=== PATIENT | female | born 1945 | race Caucasian/White ===

== ENCOUNTER 2016-11-21 17:16 | Emergency (ER) | payer MEDICARE, BC ==
--- NOTE | 2016-11-21 17:25 | Emergency Department Record ---
History of Present Illness - General Stated Complaint: JUMA/CHEST PAIN Time Seen by Provider: 11/21/16 17:18 Source: Patient Mode of Arrival: Ambulatory Limitations: No limitations - History of Present Illness Initial Comments: 71 yo female presents after a collapse on the medical floor. She was a visitor with family in the hospital. Witnesses state the patient was on the floor most of the day with out problems. She abruptly had trouble breathing and developed distress. This went on for a few minutes then started shaking/seizing. [employer]PER[employer]OR called and patient emergently brought to the ER. No initial history known on patient. No family in ED. No records on EMR. MD Complaint: Collapsed during rest -: Minute(s) Place: Home Bystander CPR Performed: No Initial Findings in the Field: Agonal Associated Symptoms: Shortness of breath - [place] Coma Scale Eye Response: (4) Open spontaneously Motor Response: (6) Obeys commands Verbal Response: (5) Oriented [place] Total: 15 Review of Systems ROS unobtainable: Due to endotracheal tube Physical Exam - General General Appearance: Severe distress, Other (Agonal respiration) Limitations: Altered mental status - Head Head exam: Normocephalic, Normal inspection - Eye Eye exam: Normal appearance. negative: Conjunctival injection, Periorbital swelling - ENT ENT exam: Normal exam, Mucous membranes moist Ear exam: Normal external inspection Nasal Exam: Normal inspection Mouth exam: Normal external inspection - Neck Neck exam: Normal inspection - Respiratory Respiratory exam: Accessory muscle use, Respiratory distress - Cardiovascular Cardiovascular Exam: Regular rate, Normal rhythm, Normal heart sounds - GI/Abdominal GI/Abdominal exam: Soft. negative: Tenderness - Rectal Rectal exam: Deferred - exam: Deferred - Extremities Extremities exam: Normal inspection, Full ROM, Normal capillary refill. negative: Tenderness - Back Back exam: Reports: Normal inspection - Neurological Neurological exam: Altered - Psychiatric Psychiatric exam: Agitated, Anxious - Skin Skin exam: Diaphoretic Course - Reevaluation(s) Reevaluation #1: initial EKG 17:22 NSR rate 72, intervals normal, axis normal, ST no acute changes 11/21/16 17:27 The patient was brought into the resuscitation room with alert but moaning mental status stating cant breath The breathing became agonal. The patient was emergently intubated with straight blade 7.5mm ETT Bilateral breath sounds with positive ETCO2. 11/21/16 17:28 Given initial EKG without acute ST elevation and extreme JUMA and hypoxia with witness seizure HCT and stat CTA chest ordered for PE. BP, HR, Oxygen saturations stable after intubation. During the initial resuscitation the patient had brief bradycardia with less than 15 seconds of chest compressions. 11/21/16 17:33 No acute changes on the CBC or CMP the portable chest was reviewed the tube is about 2 above the christina. no PTX the patient will be taken to CT repeat EKG ordered 11/21/16 17:49 Repeat EKG unchanged. No acute ST elevation RN on the floor called daughter in [place]. She is unaware of the patients medical history. The patient is visiting her father who is 105. He is unable provide history. Her daughter reports the patient told her she had a 1 hour hot spell with shortness of breath one week and and saw her doctor. Her doctor is unknown. 11/21/16 18:[address] was negative for acute process CT chest is negative for acute process no PE 11/21/16 18:43 11/21/16 18:44 Ph 7.15 PCO2 63 Po2 345 11/21/16 18:45 11/21/16 18:49 [facility] is closed to all one call transfers including [place] [facility] [place]. 11/21/16 19:04 I VIKI Smyth [place] [facility] [place] [facility] [place]. Medical Decision Making - Lab Data Result diagrams: 11/21/16 17:18 11/21/16 17:27 Disposition Disposition: Transfer Clinical Impression: Acute respiratory failure Qualifiers: Respiratory failure complication: unspecified whether with hypoxia or hypercapnia Qualified Code(s): J96.00 - Acute respiratory failure, unspecified whether with hypoxia or hypercapnia Disposition: Acute Care Hospital Transfer [place] [facility] [place] For Transfer: Acute respiratory arrest Accepting Physician: Haja Time Discussed w/Accepting Physician: 19:06 Condition: (5) Critical Forms: Patient Portal Access Time of Disposition: 19:06 Quality - Quality Measures Quality Measures: N/A - Blood Pressure Screening Does Patient Have Any of the Following: No Blood Pressure Classification: Normal BP Reading Systolic Measurement: 78 Diastolic Measurement: 67 Screening for High Blood Pressure: < Normal BP, F/U Not Required > [G8783] Pre-Hypertensive Follow-up Interventions: Referral to alternative/primary care provider.
[2016-11-21 17:26] LABS: HEMATOCRIT 46.4 % (35.0-47.0); HEMOGLOBIN 15.7 gm/dl (11.6-16.0); MEAN CELL VOLUME 90.8 fl (81-97); MEAN CORPUSCULAR HEMOGLOBIN 30.7 pg (27-33); MEAN CORPUSCULAR HGB CONC 33.8 g/dl (32-36); MEAN PLATELET VOLUME 8.6 fl (7.4-10.4); PLATELET COUNT 422 K/uL (130-400); RED BLOOD COUNT 5.11 M/uL (3.80-5.40); RED CELL DISTRIBUTION WIDTH 12.1 % (11.5-14.5); WHITE BLOOD COUNT W/O DIFF 6.4 K/uL (4.2-12.2)
[2016-11-21 17:36] LABS: ALB/GLOB RATIO 1.3 (1.1-1.8); ALBUMIN 4.3 g/dL (4.0-5.0); ALKALINE PHOSPHATASE 217 U/L (35-104); ALT/SGPT 40 U/L (<33); AST/SGOT 34 U/L (10.0-35.0); BLOOD UREA NITROGEN 13 mg/dL (8-23); CREATININE 0.5 mg/dL (0.5-0.9); EST GLOMERULAR FILTRATION RATE > 60 mL/min; GLUCOSE,RANDOM 107 mg/dL (74-109); TOTAL PROTEIN 7.6 g/dL (6.6-8.7)
[2016-11-21 17:37] LABS: INR 0.93; PARTIAL THROMBOPLASTIN TIME 23.6 SECONDS (24.5-39.1)
[2016-11-21] MEDS ORDERED: FENTANYL PF 100MCG/2ML VIAL IVP ONE ×2 (17:38→17:42)
[2016-11-21 17:42] LABS: ARTERIAL BLD GAS O2 SATURATION 99.4 % (95-98); ARTERIAL BLOOD GAS BASE EXCESS -7.6 mmol/L (-2 - 3); ARTERIAL BLOOD GAS HCO3 22.7 mmol/L (18-23); CARBOXYHEMOGLOBIN 0.6 % (0-1.5); METHEMOGLOBIN 0.2 % (0.0-1.5); O2 HEMOGLOBIN 98.6 % vol (94-99); TOTAL HEMOGLOBIN 14.3 g/dl (11.6-16)
[2016-11-21] MEDS ORDERED: 0.9 % SODIUM CHLORIDE 1,000 ML BAG IV ONE (17:42)
[2016-11-21] MEDS ORDERED: MIDAZOLAM HCL 50 MG in 0.9 % SODIUM CHLORIDE 100ML 100 ML IVPB SCH ×2 (17:45→20:30)
[2016-11-21 17:58] LABS: CKMB 2.6 ng/mL (<3.77); CREATINE PHOSPHOKINASE 78 U/L (26-192); TROPONIN I < 0.30 ng/mL (0.00-0.300)
[2016-11-21 18:13] LABS: ARTERIAL BLOOD GAS pH 7.15 (7.35-7.45)
[2016-11-21 18:14] LABS: ARTERIAL BLOOD GAS PCO2 68.7 mmHg (35-48)
[2016-11-21 18:34] LABS: ABO GROUP B; ANTIBODY SCREEN NEGATIVE (NEGATIVE); RH TYPE NEGATIVE
[2016-11-21 20:29] LABS: URINE APPEARANCE TURBID; URINE BILIRUBIN NEGATIVE (NEGATIVE); URINE BLOOD MODERATE (NEGATIVE); URINE COLOR YELLOW; URINE GLUCOSE (UA) NEGATIVE (NEGATIVE); URINE KETONE NEGATIVE (NEGATIVE); URINE LEUKOCYTE ESTERASE MODERATE (NEGATIVE); URINE NITRITE POSITIVE (NEGATIVE); URINE UROBILINOGEN 0.2 E.U./dL (0.20 - 1.00)
[2016-11-21 20:39] LABS: URINE WBC >50 (0-2/hpf)
[2016-11-21 20:40] LABS: URINE BACTERIA 1+
--- NOTE | 2016-11-23 09:00 | RADIOLOGY REPORT ---
EXAM: PORTABLE CHEST HISTORY: RESPIRATORY FAILURE. TECHNIQUE: A portable supine view of the chest was performed. FINDINGS: Endotracheal tube in satisfactory position. The heart size is normal. The lung hess are clear. IMPRESSION: ENDOTRACHEAL TUBE IN SATISFACTORY POSITION. JOB NUMBER: [id number] MTDD
--- NOTE | 2016-11-23 09:04 | CT SCAN REPORT ---
EXAM: CT OF THE BRAIN WITHOUT CONTRAST HISTORY: CEREBROVASCULAR ACCIDENT. TECHNIQUE: Sequential axial images were obtained from the foramen magnum to the vertex without contrast administration. FINDINGS: The brain volume is normal. No large territorial infarct, hemorrhage , mass effect, or midline shift. No extraaxial fluid collection. The orbits, paranasal sinuses, and mastoid air cells appear normal. IMPRESSION: NO ACUTE INTRACRANIAL ABNORMALITY IS APPRECIATED BY CT EXAMINATION. JOB NUMBER: [id number] MTDD
--- NOTE | 2016-11-23 09:09 | CT ANGIOGRAM REPORT ---
EXAM: CTA OF THE CHEST WITH CONTRAST HISTORY: RESPIRATORY FAILURE. TECHNIQUE: CTA of the chest was performed after intravenous administration of 80 ml of Omnipaque 350 contrast material. Sagittal and coronal MIP images were performed on an independent workstation. FINDINGS: No mass or filling defect to suggest pulmonary embolism. There is mild cardiomegaly. No pericardial effusion. The thoracic aorta appears normal. There is focal ground glass opacity in the right upper lobe likely related to pneumonitis. The remainder of the lung hess are clear. No pleural effusion. There is gaseous distention of the stomach. The adrenal glands appear normal. IMPRESSION: 1. NO CTA FINDINGS SUGGESTIVE OF PULMONARY EMBOLISM. 2. FOCAL GROUND GLASS OPACITY IN THE RIGHT UPPER LOBE LIKELY RELATED TO PNEUMONITIS. 3. DISTENTION OF THE STOMACH. 4. MILD CARDIOMEGALY WITHOUT PERICARDIAL EFFUSION. JOB NUMBER: [id number] MTDD
--- NOTE | 2016-11-23 09:11 | RADIOLOGY REPORT ---
EXAM: AP CHEST HISTORY: NASOGASTRIC TUBE PLACEMENT. TECHNIQUE: A single AP view of the chest was performed. FINDINGS: Endotracheal tube and nasogastric tube are in satisfactory position. The lung hess are clear. IMPRESSION: ENDOTRACHEAL TUBE AND NASOGASTRIC TUBE ARE IN SATISFACTORY POSITION. JOB NUMBER: [id number] MTDD
== END 2016-11-21 20:20 | disposition short-term general hospital (02) ==
LOC: ER 17:16
DX: J96.00 Acute respiratory failure, unspecified whether with hypoxia or hypercapnia (principal); R55 Syncope and collapse
CPT/HCPCS: 31500 ×2; 92950 ×2; 51702; 96376; 99291 ×2; 96374; 96375; 82550; 83605; 85730; 85610; 82375; 82553; 84484; 80053; 81001; 82803; 85027; 86900; 86901; 86850; 71010; 71275; 70450; 36600; 94002; 93005; 93010; Q9967; J3010; J7030